=== PATIENT | male | born 1980 | race Caucasian/White ===

== ENCOUNTER 2022-06-14 21:43 | Emergency (ER) | payer OTHER ==
[~2022-06-14] VITALS: Ht 190.5 cm; Wt 90.9 kg
[2022-06-14 21:53] VITALS: BP 118/83; PULSE 69; TEMP 98.6
== END 2022-06-14 22:40 | disposition home or self-care (01) ==
LOC: COL.ER 21:43
DX: S49.92XA Unspecified injury of left shoulder and upper arm, initial encounter (principal); V19.9XXA Pedal cyclist (driver) (passenger) injured in unspecified traffic accident, initial encounter